=== PATIENT | female | born 1985 | race American Indian/Alaskan Native ===

== ENCOUNTER 2018-05-29 14:53 | Emergency (ER) | payer MEDICAID ==
[2018-05-29] MEDS ORDERED: BENADRYL IV ONE (15:23)
[2018-05-29] MEDS ORDERED: SOLU-Medrol IV ONE (15:23)
[2018-05-29] MEDS ORDERED: PEPCID IV ONE (15:23)
--- NOTE | 2018-05-29 15:47 | Emergency Department Report ---
HPI - General Chief Complaint: Allergic Reaction Time Seen by Provider: 05/29/18 15:16 - HPI HPI: 32-year-old female presents to the emergency department, driving herself in to be seen, from a women's clinic with complaint of a possible allergic reaction. The patient received some type of medication that appears to be either azithromycin, Misoprostol or Cytotec at the doctor's office and about 5 minutes later she started having some tingling of the tongue and lips, pain to the throat with concern for inflammation or swelling and itching around her face. She was not given any further medication or treatment and was told to drive herself into the emergency department for evaluation. She denies any chest pain, shortness of breath, fever, nausea or vomiting. She has a past medical history of H. pylori. She was at the women's clinic as a 2 week follow- up from a miscarriage or . ED Past Medical Hx - Past Medical History Additional medical history: A PYLORIC - Surgical History Additional Surgical History: HEMRRHOID SURGERY - Social History Smoking Status: Current Every Day Smoker - Medications Home Medications: Home Medications Medication Instructions Recorded Confirmed Last Taken Type Butalbit/Acetamin/Caff/Codeine 1 cap PO Q6HR PRN #14 cap 04/27/15 Unknown Rx [Fioricet/Codeine [id number]] Ibuprofen [Motrin] 800 mg PO Q8HR PRN #30 tablet 04/27/15 Unknown Rx Famotidine [Pepcid] 20 mg PO BID #6 tablet 05/29/18 Unknown Rx predniSONE [Deltasone] 20 mg PO QDAY #3 tab 05/29/18 Unknown Rx ED Review of Systems ROS: Stated complaint: ALLERGIC REACTION Other details as noted in HPI Comment: All other systems reviewed and negative Constitutional: denies: chills, fever Eyes: denies: eye pain, eye discharge, vision change ENT: throat pain. denies: ear pain Respiratory: denies: cough, shortness of breath, wheezing Cardiovascular: denies: chest pain, palpitations Gastrointestinal: denies: abdominal pain, nausea, diarrhea Genitourinary: denies: urgency, dysuria, discharge Musculoskeletal: denies: back pain, joint swelling, arthralgia Skin: pruritus. denies: rash, change in color Neurological: denies: headache, weakness Physical Exam - Physical Exam Vital Signs: Vital Signs 10/04/18 14:57 Temperature 97.9 F Pulse Rate 84 Respiratory 18 Rate Blood Pressure 116/84 O2 Sat by Pulse 97 Oximetry Physical Exam: GENERAL: The patient is well-developed well-nourished. HENT: Normocephalic. Atraumatic. Patient has moist mucous membranes. Oropharynx is clear without tonsillar hypertrophy, erythema or exudates. No drooling or trismus. EYES: Extraocular motions are intact. Pupils equal reactive to light bilaterally. NECK: Supple. Trachea is midline. CHEST/LUNGS: Clear to auscultation. There is no respiratory distress noted. HEART/CARDIOVASCULAR: Regular. There is no tachycardia. There is no murmur. ABDOMEN: Abdomen is soft, nontender. Patient has normal bowel sounds. There is no abdominal distention. SKIN: Skin is warm and dry. NEURO: The patient is awake, alert, and oriented. The patient is cooperative. The patient has no focal neurologic deficits. The patient has normal speech. MUSCULOSKELETAL: There is no tenderness or deformity. There is no limitation range of motion. There is no evidence of acute injury. ED Course Vital Signs 05/29/18 14:57 Temperature 97.9 F Pulse Rate 84 Respiratory 18 Rate Blood Pressure 116/84 O2 Sat by Pulse 97 Oximetry - Consultations Consultation #1: 05/29/18 20:28 I spoke with the financial business analyst Ligia toscano [email or web address] listen to the case presentation and the results of the ultrasound and feels that the patient is safe for discharge home but does recommend follow-up with her JACKSCREW WORKER or the women's clinic tomorrow or as soon as possible. ED Medical Decision Making - Radiology Data Radiology results: report reviewed EXAM: US OB TRANSVAGINAL HISTORY: concern for retained products of conception TECHNIQUE: Transvaginal grayscale and color-flow imaging of the pelvis was performed. Comparison: Transabdominal study also performed today FINDINGS: Endometrial thickness measures 19 millimeters. The contents of the endometrium is heterogeneous in appearance. There is a region of increased echogenicity in the anterior endometrium which may represent retained products of conception. However, there is no evidence of increased vascularity this region. The right ovary measures 2.7 centimeters by 2.8 centimeters x 2 centimeters, is normal in appearance and contains follicles. Flow is demonstrated in the right ovary utilizing color flow imaging. There is an approximately 1.7 centimeter x 1 centimeter x 1.5 centimeter paraovarian cystic structure. The left ovary is not convincingly demonstrated with this study. No free fluid is demonstrated in the pelvis. IMPRESSION: 1. Heterogeneous appearance of the contents of the endometrium which may represent blood products. 2. There is an echogenic region in the anterior endometrium which may represent retained products of conception. However, there is no increased vascularity in this region. 3. The left ovary is not convincingly demonstrated. 4. The right ovary is unremarkable in appearance. 5. Small right paraovarian cyst. 6. No free fluid is demonstrated in the pelvis. Transcribed By: ED Dictated By: DIVYA MOTA MD Electronically Authenticated By: DIVYA MOTA MD Signed Date/Time: 05/29/181947 - Medical Decision Making The patient presented with concern for allergic reaction after receiving 2 or 3 medications at the women's clinic just prior to arrival. Her complaint was mostly a scratchy and sore throat with concern that there could be some swelling. On examination the patient has a Mallampati of 1. Posterior pharynx is normal in appearance. No sign of drooling or trismus. Rapid strep test was done that was negative. The patient then displayed concern regarding her previous ultrasound results from the women's clinic that showed either blood or possible retained products of conception. An ultrasound was done here that doesn't fact show some blood within the endometrium and an echogenic region that could represent retained products of conception. Patient has a soft, nonrigid and nontoxic abdomen. Her vital signs were stable including being afebrile. I spoke to the JACKSCREW WORKER service sewing techniques demonstrator who feels that she is safe to go home but to follow up with her JACKSCREW WORKER. The patient will get a few days of steroids and Pepcid and will use Benadryl as necessary for her throat and/or possible allergic reaction. She will return to ER with any abdominal pain or development of fever or any acute distress. - Differential Diagnosis retained products of conception, strep pharyngitis, viral pharyngitis Critical Care Time: No Critical care attestation.: If time is entered above; I have spent that time in minutes in the direct care of this critically ill patient, excluding procedure time. ED Disposition Clinical Impression: Status post elective , Retained products of conception Allergic reaction Qualifiers: Encounter type: initial encounter Qualified Code(s): T78.40XA - Allergy, unspecified, initial encounter Pharyngitis Qualifiers: Pharyngitis/tonsillitis etiology: unspecified etiology Qualified Code(s): J02.9 - Acute pharyngitis, unspecified Disposition: TO HOME OR SELFCARE Is pt being admited?: No Condition: Stable Additional Instructions: You were seen today for a possible allergic reaction. I am giving you a few days of steroids and Pepcid and you can use Benadryl as needed. Please make sure you follow-up immediately with your JACKSCREW WORKER regarding the blood in the uterus and questionable products of retained conception. Return to the emergency Department with any worsening of your symptoms or any acute distress. Prescriptions: Famotidine [Pepcid] 20 mg PO BID #6 tablet predniSONE [Deltasone] 20 mg PO QDAY #3 tab Referrals: OBGYN, Your [Other] - [facility] Time of Disposition: 20:22
[2018-05-29 16:27] VITALS: BP 116/78
[2018-05-29] MEDS ORDERED: CHLORASEPTIC MM PRN (17:45)
--- NOTE | 2018-05-29 19:42 | Ultrasound Report ---
FINAL REPORT EXAM: US OB < = 14 WEEKS FETUS HISTORY: concern for retained products of conception status post 2 weeks ago. TECHNIQUE: Transvaginal grayscale and color-flow imaging of the pelvis was performed. Comparison: Transvaginal study also performed today FINDINGS: The bladder is decompressed which limits evaluation. The uterus measures approximately 8.1 centimeters x 3.9 centimeters by 4.3 centimeters. Endometrial thickness measures 10 millimeters. Visualization detail of the uterus is limited. The ovaries are not visualized on the transabdominal study. IMPRESSION: 1. Visualization detail is limited by poorly distended bladder Please see report of transvaginal study also performed today.
--- NOTE | 2018-05-29 19:49 | Ultrasound Report ---
FINAL REPORT EXAM: US OB TRANSVAGINAL HISTORY: concern for retained products of conception TECHNIQUE: Transvaginal grayscale and color-flow imaging of the pelvis was performed. Comparison: Transabdominal study also performed today FINDINGS: Endometrial thickness measures 19 millimeters. The contents of the endometrium is heterogeneous in appearance. There is a region of increased echogenicity in the anterior endometrium which may represent retained products of conception. However, there is no evidence of increased vascularity this region. The right ovary measures 2.7 centimeters by 2.8 centimeters x 2 centimeters, is normal in appearance and contains follicles. Flow is demonstrated in the right ovary utilizing color flow imaging. There is an approximately 1.7 centimeter x 1 centimeter x 1.5 centimeter paraovarian cystic structure. The left ovary is not convincingly demonstrated with this study. No free fluid is demonstrated in the pelvis. IMPRESSION: 1. Heterogeneous appearance of the contents of the endometrium which may represent blood products. 2. There is an echogenic region in the anterior endometrium which may represent retained products of conception. However, there is no increased vascularity in this region. 3. The left ovary is not convincingly demonstrated. 4. The right ovary is unremarkable in appearance. 5. Small right paraovarian cyst. 6. No free fluid is demonstrated in the pelvis.
== END 2018-05-29 20:39 | disposition home or self-care (01) ==
LOC: ED 14:53
DX: T78.40XA Allergy, unspecified, initial encounter (principal); J02.9 Acute pharyngitis, unspecified; F17.200 Nicotine dependence, unspecified, uncomplicated; Z98.890 Other specified postprocedural states
CPT/HCPCS: 36415; 76801; 76817; 84702; 87116; 87430; 96374; 96375; 99284; J1200; J2930

== ENCOUNTER 2018-10-01 15:34 | Emergency (ER) | payer MEDICAID ==
[2018-10-01 16:14] VITALS: BP 114/76
[2018-10-01] MEDS ORDERED: ZOFRAN ODT PO ONE (16:14)
--- NOTE | 2018-10-01 16:29 | Emergency Department Report ---
Blank Doc - Documentation Documentation: 33 yo F presents with n v with abd pain non tender labs ordered reevaluate
[2018-10-01 16:43] LABS: HCG Qualitative,Urine Negative (Negative)
[2018-10-01 16:47] LABS: Bilirubin,Urine NEG (Negative); Blood,Urine NEG (Negative); Color,Urine Yellow (Yellow); Mucus,Urine FEW /HPF; Protein,Urine <15 mg/dL mg/dL (Negative); Urobilinogen,Urine < 2.0 mg/dL (<2.0)
[2018-10-01] MEDS ORDERED: TORADOL IV ONE (17:01)
[2018-10-01] MEDS ORDERED: NACL 0.9% 1000 ML 1,000 ML IV ONE ×2 (17:01→19:02)
--- NOTE | 2018-10-01 17:12 | Emergency Department Report ---
ED Abdominal Pain HPI - General Chief Complaint: Nausea/Vomiting/Diarrhea Stated Complaint: BACK/STOMACH PAIN Time Seen by Provider: 10/01/18 16:14 Source: patient Mode of arrival: Ambulatory Limitations: No Limitations - History of Present Illness Initial Comments: This is a 33-year-old female nontoxic, well nourished in appearance, no acute signs of distress presents to the ED with c/o of nausea and vomiting and abdominal pain 3 weeks. Patient describes vomiting as food content and yellow gastric acid. Patient describes abdominal pain as cramping and aching with level of 3/10 diffuse. Patient denies chest pain, short of breath, fever, chill s, headache, stiff neck, numbness or tingling. Patient denies any diarrhea or constipation. Patient denies any recent travels. Patient stated allergies to sulfa. MD Complaint: abdominal pain -: week(s) (3) Location: diffuse Radiation: none Migration to: no migration Severity scale (0 -10): 3 Quality: cramping, aching Consistency: constant Improves With: nothing Worsens With: nothing Associated Symptoms: nausea, vomiting. denies: diarrhea, fever, chills, constipation, dysuria, hematemesis, hematochezia, melena, hematuria, anorexia, syncope - Related Data Previous Rx's Medication Instructions Recorded Last Taken Type Butalbit/Acetamin/Caff/Codeine 1 cap PO Q6HR PRN #14 cap 04/27/15 Unknown Rx [Fioricet/Codeine [id number]] Ibuprofen [Motrin] 800 mg PO Q8HR PRN #30 tablet 04/27/15 Unknown Rx Famotidine [Pepcid] 20 mg PO BID #6 tablet 05/29/18 Unknown Rx predniSONE [Deltasone] 20 mg PO QDAY #3 tab 05/29/18 Unknown Rx Acetaminophen/Codeine [Tylenol 1 tab PO Q6H PRN #12 tab 10/01/18 Unknown Rx /Codeine # 3 tab] Ondansetron [Zofran Odt] 4 mg PO Q8HR PRN #20 tab.rapdis 10/01/18 Unknown Rx Allergies Allergy/AdvReac Type Severity Reaction Status Date / Time Sulfa (Sulfonamide Allergy Hives Verified 05/29/18 14:56 Antibiotics) ED Review of Systems ROS: Stated complaint: BACK/STOMACH PAIN Other details as noted in HPI Constitutional: denies: chills, fever Eyes: denies: eye pain, eye discharge, vision change ENT: denies: ear pain, throat pain Respiratory: denies: cough, shortness of breath, wheezing Cardiovascular: denies: chest pain, palpitations Endocrine: no symptoms reported Gastrointestinal: abdominal pain, nausea, vomiting. denies: diarrhea Genitourinary: denies: urgency, dysuria, discharge Musculoskeletal: denies: back pain, joint swelling, arthralgia Skin: denies: rash, lesions Neurological: denies: headache, weakness, paresthesias Psychiatric: denies: anxiety, depression Hematological/Lymphatic: denies: easy bleeding, easy bruising ED Past Medical Hx - Past Medical History Additional medical history: A PYLORIC - Surgical History Additional Surgical History: HEMRRHOID SURGERY - Social History Smoking Status: Current Every Day Smoker Substance Use Type: None - Medications Home Medications: Home Medications Medication Instructions Recorded Confirmed Last Taken Type Butalbit/Acetamin/Caff/Codeine 1 cap PO Q6HR PRN #14 cap 04/27/15 Unknown Rx [Fioricet/Codeine [id number]] Ibuprofen [Motrin] 800 mg PO Q8HR PRN #30 tablet 04/27/15 Unknown Rx Famotidine [Pepcid] 20 mg PO BID #6 tablet 05/29/18 Unknown Rx predniSONE [Deltasone] 20 mg PO QDAY #3 tab 05/29/18 Unknown Rx Acetaminophen/Codeine [Tylenol 1 tab PO Q6H PRN #12 tab 10/01/18 Unknown Rx /Codeine # 3 tab] Ondansetron [Zofran Odt] 4 mg PO Q8HR PRN #20 tab.rapdis 10/01/18 Unknown Rx ED Physical Exam - General Limitations: No Limitations General appearance: alert, in no apparent distress - Head Head exam: Present: atraumatic, normocephalic - Eye Eye exam: Present: normal appearance - Neck Neck exam: Present: normal inspection, full ROM. Absent: tenderness, meningismus, lymphadenopathy - Respiratory Respiratory exam: Present: normal lung sounds bilaterally. Absent: respiratory distress, wheezes, rales, rhonchi, stridor, chest wall tenderness, accessory muscle use, decreased breath sounds, prolonged expiratory - Cardiovascular Cardiovascular Exam: Present: regular rate, normal rhythm, normal heart sounds. Absent: bradycardia, tachycardia, irregular rhythm, systolic murmur, diastolic murmur, rubs, gallop - GI/Abdominal GI/Abdominal exam: Present: soft, tenderness (diffuse), normal bowel sounds. Absent: distended, guarding, rebound, rigid, diminished bowel sounds - Expanded GI/Abdominal Exam Expanded GI/Abdominal exam: Absent: psoas sign, Rosales's sign, Rovsing's sign, tenderness at Mcburney's Point, ascites - Extremities Exam Extremities exam: Present: normal inspection, full ROM, normal capillary refill - Back Exam Back exam: Present: normal inspection, full ROM. Absent: tenderness, CVA tenderness (R), CVA tenderness (L), muscle spasm, paraspinal tenderness, vertebral tenderness, rash noted - Neurological Exam Neurological exam: Present: alert, oriented X3 - Psychiatric Psychiatric exam: Present: normal affect, normal mood - Skin Skin exam: Present: warm, dry, intact, normal color. Absent: rash ED Course Vital Signs 10/01/18 10/01/18 10/01/18 16:12 17:33 18:03 Temperature 98.2 F Pulse Rate 79 Respiratory 16 18 18 Rate Blood Pressure 114/76 O2 Sat by Pulse 100 Oximetry 10/01/18 10/01/18 10/01/18 18:55 20:35 21:05 Temperature Pulse Rate Respiratory 16 16 18 Rate Blood Pressure O2 Sat by Pulse 100 Oximetry - Reevaluation(s) Reevaluation #1: 10/01/18 17:10 Patient is speaking in full sentences with no signs of distress noted. - Consultations Consultation #1: 10/01/18 19:06 Patient has been consulted with Dr. Cervantes (general surgery) about patient history, physical exam, and labs/CT results and to perform ultrasound to right upper abdominal and if positive cholecystitis patient to be admitted. ED Medical Decision Making - Lab Data Result diagrams: 10/01/18 17:02 10/01/18 17:02 - Medical Decision Making This is a 33-year-old female that presents with abdominal pain with nausea and vomiting. Patient is stable and was examined by me. There is slight abdominal tenderness. Negative signs of symptoms of appendicitis. Labs obtained. Patient was dicussed with Dr. Cervantes and stated patient can be discharged. CT with contrast and Ultrasound of abdomen obtained and dictated by the radiologist. Patient is notified of the report with no questions noted by the patient. Vital signs are stable prior to discharge. Patient received medical treatment in the ED which patient stated symptoms has resolved and subsided. A by mouth challenge has been obtained and patient tolerated well with no nausea vomiting. Patient was notified of strict precautions of appendicitis symptoms and to return to the ED if symptoms occurs as soon as possible. Patient was also instructed to Follow-up with a primary care doctor in 3-5 days or if symptoms worsen and continue return to emergency room as soon as possible. At time of discharge, the patient does not seem toxic or ill in appearance. No acute signs of distress noted. Patient agrees to discharge treatment plan of care. No fu rther questions noted by the patient. Critical care attestation.: If time is entered above; I have spent that time in minutes in the direct care of this critically ill patient, excluding procedure time. ED Disposition Clinical Impression: Abdominal pain Qualifiers: Abdominal location: generalized Qualified Code(s): R10.84 - Generalized abdominal pain Nausea & vomiting Qualifiers: Vomiting type: unspecified Vomiting Intractability: non-intractable Qualified Code(s): R11.2 - Nausea with vomiting, unspecified Disposition: DC-01 TO HOME OR SELFCARE Is pt being admited?: No Does the pt Need Aspirin: No Condition: Stable Instructions: Acute Abdominal Pain (ED), Acute Nausea and Vomiting (ED), Acetaminophen/Codeine (By mouth) Additional Instructions: Follow-up with a primary care doctor in 3-5 days or if symptoms worsen and con tinue return to emergency room as soon as possible. Do not operate any machinery while taking Tylenol with codeine as this may cause drowsiness. Prescriptions: Acetaminophen/Codeine [Tylenol /Codeine # 3 tab] 1 tab PO Q6H PRN #12 tab PRN Reason: Pain , Severe (7-10) Ondansetron [Zofran Odt] 4 mg PO Q8HR PRN #20 tab.rapdis PRN Reason: Nausea Referrals: PRIMARY CARE, [Referring] - 3-5 Days MYLES CHAND MD [Staff Physician] - 3-5 Days [facility] [Outside] - 3-5 Days [facility] [Outside] - 3-5 Days Forms: Work/School Release Form(ED)
[2018-10-01 17:22] LABS: Basophils # (Auto) 0.1 K/mm3 (0.0-0.1); Basophils % (Auto) 1.3 % (0.0-1.8); Eosinophils # (Auto) 0.2 K/mm3 (0.0-0.4); Eosinophils % (Auto) 2.7 % (0.0-4.3); Hematocrit 38.5 % (30.3-42.9); Hemoglobin 12.7 gm/dl (10.1-14.3); Lymphocytes # (Auto) 2.8 K/mm3 (1.2-5.4); Lymphocytes % (Auto) 37.9 % (13.4-35.0); Mean Corpuscular HGB Conc 33 % (30-34); Mean Corpuscular Volume 94 fl (79-97); Monocytes # (Auto) 0.5 K/mm3 (0.0-0.8); Monocytes % (Auto) 6.7 % (0.0-7.3); Platelet Count 278 K/mm3 (140-440); Red Cell Distribution Width 13.4 % (13.2-15.2)
[2018-10-01 17:35] LABS: Alanine Aminotransferase 8 units/L (7-56); BUN/Creatinine Ratio 7; Blood Urea Nitrogen 5 mg/dL (7-17); Calcium 8.7 mg/dL (8.4-10.2); Hemolysis Index 4
[2018-10-01 17:46] LABS: Bilirubin,Direct < 0.2 mg/dL (0-0.2)
--- NOTE | 2018-10-01 18:33 | Cat Scan Report ---
FINAL REPORT EXAM: CT ABD AND PELVIS W CONTRAST HISTORY: ABDOMINAL PAIN TECHNIQUE: CT examination of the ABDOMEN after IV contrast CT examination of the PELVIS after IV contrast PRIORS: Pelvic ultrasound 05/29/2018 FINDINGS: Clear lung bases. No acute fracture. Normal-appearing liver, adrenals, pancreas, and spleen. Intact n ormal caliber abdominal aorta and IVC. Normal-appearing kidneys and ureters. Very small fat containin g umbilical hernia. No inguinal hernia. No retroperitoneal adenopathy. No mesenteric mass. Normal-mady earing stomach and duodenum. No small bowel distention in the abdomen and pelvis. The gallbladder is contracted. The wall appears slightly thickened and hyperemic with IV contrast-enh ancement. This may be artifact of contracted state. Differential includes cholecystitis. No pelvic free fluid. Normal-appearing urinary bladder, uterus, adnexae, and rectum. No sigmoid colon abnormality. No gross ascites, free air, or colonic distention. Normal-appearing cecum, terminal ile um, and appendix. IMPRESSION: Gallbladder wall slightly thickened with appearance of hyperemia. This may be artifact of contracted state. Differential includes cholecystitis in the appropriate clinical setting
[2018-10-01] MEDS ORDERED: MORPHINE IV ONE (19:04)
--- NOTE | 2018-10-01 20:20 | Ultrasound Report ---
FINAL REPORT PROCEDURE: Limited abdominal ultrasound. TECHNIQUE: Real-time sonography was performed of the right upper quadrant of the abdomen with image documentation. CPT 91142 HISTORY: Right upper abdominal pain. COMPARISON: No prior studies are available for comparison. FINDINGS: The pancreas appears normal. The liver has uniform echogenicity without focal masses. The portal veno us system is patent by color flow imaging. The gallbladder appears adequately distended with normal w all thickness. There are no gallstones. The common hepatic duct measures 2.2 millimeters. The right k idney appears normal in size and has normal echogenicity. There is no hydronephrosis. IMPRESSION: Normal study.
== END 2018-10-01 21:50 | disposition home or self-care (01) ==
LOC: ED 15:34
DX: R11.2 Nausea with vomiting, unspecified (principal); R10.84 Generalized abdominal pain; F17.200 Nicotine dependence, unspecified, uncomplicated; Z88.2 Allergy status to sulfonamides
CPT/HCPCS: 36415; 74177; 76705; 80048; 80076; 81001; 81025; 82150; 83690; 85025; 96361; 96374; 96375; 99284; J1885; J2270; J7030; Q9967; Q0162

== ENCOUNTER 2019-04-24 14:18 | Emergency (ER) | payer SELFPAY ==
[2019-04-24] MEDS ORDERED: BOOSTRIX IM ONE (14:31)
--- NOTE | 2019-04-24 14:34 | Emergency Department Report ---
Abscess Boil HPI - HPI Stated Complaint: LFT THIGH DOG BITE/PAIN Time Seen by Provider: 04/24/19 14:31 Duration: 4 Days Location: Lower Extremity Severity: Mild History: No Fever, No Pain, No Purulent Drainage, No Numbness, No Foreign Body, No Previous History, No Insect Bite HPI: 33 YO WITH DOG BITE TO LEFT THIGH ON TUES. THE DOG WAS A BOXER AND SOMEONES PET. SHE WAS JUST CONERNED BECAUSE IT IS TURNING BRUISED Home Medications: Previous Rx's Medication Instructions Recorded Last Taken Type Butalbit/Acetamin/Caff/Codeine 1 cap PO Q6HR PRN #14 cap 04/27/15 Unknown Rx [Fioricet/Codeine 49-272-17-30] Ibuprofen [Motrin] 800 mg PO Q8HR PRN #30 tablet 04/27/15 Unknown Rx Famotidine [Pepcid] 20 mg PO BID #6 tablet 05/29/18 Unknown Rx predniSONE [Deltasone] 20 mg PO QDAY #3 tab 05/29/18 Unknown Rx Acetaminophen/Codeine [Tylenol 1 tab PO Q6H PRN #12 tab 10/01/18 Unknown Rx /Codeine # 3 tab] Ondansetron [Zofran Odt] 4 mg PO Q8HR PRN #20 tab.rapdis 10/01/18 Unknown Rx Amoxicillin [Trimox CAP] 500 mg PO BID #20 capsule 04/24/19 Unknown Rx Allergies/Adverse Reactions: Allergies Allergy/AdvReac Type Severity Reaction Status Date / Time Sulfa (Sulfonamide Allergy Hives Verified 05/29/18 14:56 Antibiotics) ED Review of Systems ROS: Stated complaint: LFT THIGH DOG BITE/PAIN Other details as noted in HPI Comment: All other systems reviewed and negative ED Past Medical Hx - Past Medical History Previous Medical History?: Yes Additional medical history: A PYLORIC - Surgical History Past Surgical History?: Yes Additional Surgical History: HEMRRHOID SURGERY - Family History Family history: no significant - Social History Smoking Status: Current Every Day Smoker Substance Use Type: None - Medications Home Medications: Home Medications Medication Instructions Recorded Confirmed Last Taken Type Butalbit/Acetamin/Caff/Codeine 1 cap PO Q6HR PRN #14 cap 04/27/15 Unknown Rx [Fioricet/Codeine [id number]] Ibuprofen [Motrin] 800 mg PO Q8HR PRN #30 tablet 04/27/15 Unknown Rx Famotidine [Pepcid] 20 mg PO BID #6 tablet 05/29/18 Unknown Rx predniSONE [Deltasone] 20 mg PO QDAY #3 tab 05/29/18 Unknown Rx Acetaminophen/Codeine [Tylenol 1 tab PO Q6H PRN #12 tab 10/01/18 Unknown Rx /Codeine # 3 tab] Ondansetron [Zofran Odt] 4 mg PO Q8HR PRN #20 tab.rapdis 10/01/18 Unknown Rx Amoxicillin [Trimox CAP] 500 mg PO BID #20 capsule 04/24/19 Unknown Rx ED Abscess Boil Physical Exam - Exam General: Vital signs noted. No distress. Alert and acting appropriately. Exam: Yes Tenderness, Yes Normal Neurologic Exam, Yes Normal Circulation, No Fluctuance, No Surrounding Cellulites/Erythema, No Lymphangitis, No Crepitation, No Heart Murmur Critical care attestation.: If time is entered above; I have spent that time in minutes in the direct care of this critically ill patient, excluding procedure time. ED Medical Decision Making - Medical Decision Making dog bite needs tdap vss non toxic no fever no abscess dog was pet with collar and tag pt concerned due to bruising Vital Signs 04/24/19 14:32 Temperature 98.7 F Pulse Rate 77 Respiratory 16 Rate Blood Pressure 109/72 O2 Sat by Pulse 99 Oximetry ED Disposition Clinical Impression: Animal bite Disposition: DC-01 TO HOME OR SELFCARE Is pt being admited?: No Does the pt Need Aspirin: No Condition: Stable Instructions: Animal Bite (ED) Additional Instructions: MOTRIN OR TYLENOL FOR PAIN WARM COMPRESSES WILL HELP WITH PAIN MED ORDERED TODAY FOLLOW UP PCP IF NEEDED REFERRAL BELOW Prescriptions: Amoxicillin [Trimox CAP] 500 mg PO BID #20 capsule Referrals: [facility] [Outside] - 3-5 Days Time of Disposition: 14:33
[2019-04-24 14:36] VITALS: BP 109/72
== END 2019-04-24 14:58 | disposition home or self-care (01) ==
LOC: ED 14:18
DX: M79.652 Pain in left thigh (principal); S71.152A Open bite, left thigh, initial encounter; W64.XXXA Exposure to other animate mechanical forces, initial encounter; Y93.89 Activity, other specified; Y92.89 Other specified places as the place of occurrence of the external cause; Y99.8 Other external cause status
CPT/HCPCS: 90471; 90715; 99282